=== PATIENT | male | born 1985 | race American Indian/Alaskan Native ===

== ENCOUNTER 2020-12-11 07:43 | Emergency (ER) | payer BC ==
[2020-12-11 08:26] VITALS: BP 155/81
--- NOTE | 2020-12-11 09:11 | XRay Report ---
RIGHT ANKLE 2 VIEWS INDICATION / CLINICAL INFORMATION: injury, pain COMPARISON: None available. FINDINGS: BONES / JOINT(S): No acute fracture or subluxation. There is a small osteophyte arising from the jesica cular bone. SOFT TISSUES: There is soft tissue swelling over the lateral malleolus. ADDITIONAL FINDINGS: None. Signer Name: Jesus Mendez MD Signed: 12/11/2020 8:58 AM Workstation Name: [id number]
--- NOTE | 2020-12-11 10:14 | Emergency Department Report ---
ED General Adult HPI - General Chief complaint: Extremity Injury, Lower Stated complaint: RT ANKLE INJURY Source: patient Mode of arrival: Wheelchair Limitations: No Limitations - History of Present Illness Initial comments: 35-year-old -[place] male patient presents with complaints of right ankle pain starting last night. Patient states he twisted his ankle while play ing around with his children. He states the pain only occurs when he bears weight and rates it as a 6/10 in severity. Tylenol did not improve pain per patient. He denies any numbness/tingling/weakness in his ankle/foot, color changes, or difficulty with movement. -: Sudden Severity scale (0 -10): 7 - Related Data Previous Rx's Medication Instructions Recorded Last Taken Type Naproxen [Naprosyn] 500 mg PO BID PRN #20 tablet 12/11/20 Unknown Rx Allergies Allergy/AdvReac Type Severity Reaction Status Date / Time No Known Allergies Allergy Unverified 12/11/20 08:25 ED Review of Systems ROS: Stated complaint: RT ANKLE INJURY Other details as noted in HPI Musculoskeletal: joint swelling, arthralgia Skin: denies: change in color Neurological: abnormal gait. denies: numbness, paresthesias ED Past Medical Hx - Past Medical History Previous Medical History?: No - Surgical History Past Surgical History?: No - Medications Home Medications: Home Medications Medication Instructions Recorded Confirmed Last Taken Type Naproxen [Naprosyn] 500 mg PO BID PRN #20 tablet 12/11/20 Unknown Rx ED Physical Exam - General Limitations: No Limitations General appearance: alert, in no apparent distress - Head Head exam: Present: atraumatic, normocephalic - Eye Eye exam: Present: normal appearance - Respiratory Respiratory exam: Absent: respiratory distress - Cardiovascular Cardiovascular Exam: Present: regular rate - Expanded Lower Extremity Exam Right Ankle exam: Present: full ROM, tenderness, swelling (Mild lateral). Absent: ecchymosis, deformity, crepidus, dislocation, erythema Neuro vascular tendon exam: Present: no vascular compromise. Absent: sensory deficit Gait: Positive: antalgic - Neurological Exam Neurological exam: Present: alert, oriented X3 - Psychiatric Psychiatric exam: Present: normal affect, normal mood ED Course Vital Signs 12/11/20 08:25 Temperature 98 F Pulse Rate 65 Respiratory 16 Rate Blood Pressure 155/81 [Right] O2 Sat by Pulse 98 Oximetry ED Medical Decision Making - Radiology Data Radiology results: report reviewed RIGHT ANKLE 2 VIEWS INDICATION / CLINICAL INFORMATION: injury, pain COMPARISON: None available. FINDINGS: BONES / JOINT(S): No acute fracture or subluxation. There is a small osteophyte arising from the navicular bone. SOFT TISSUES: There is soft tissue swelling over the lateral malleolus. ADDITIONAL FINDINGS: None. - Medical Decision Making 35-year-old -[place] male patient presents with complaints of right ankle pain starting last night. Patient states he twisted his ankle while playing around with his children. He states the pain only occurs when he bears weight and rates it as a 6/10 in severity. Tylenol did not improve pain per patient. He denies any numbness/tingling/weakness in his ankle/foot, color changes, or difficulty with movement. X-ray negative for any acute bony abnormalities, but shows soft tissue swelling. Will treat for ankle sprain with rice method and crutches. Recommend follow- up with PCP. His vitals are within normal limits, he is well-appearing, he is stable for discharge home. Strict return precautions were discussed in detail patient verbalizes understanding. Patient to also have his blood pressure rechecked with his primary care provider in 2 days Critical care attestation.: If time is entered above; I have spent that time in minutes in the direct care of this critically ill patient, excluding procedure time. ED Disposition Clinical Impression: Elevated blood pressure reading in office without diagnosis of hypertension Right ankle injury Qualifiers: Encounter type: initial encounter Qualified Code(s): S99.911A - Unspecified injury of right ankle, initial encounter Disposition: - TO HOME OR SELFCARE Is pt being admited?: No Condition: Stable Instructions: Ankle Sprain, Hypertension, Adult Prescriptions: Naproxen [Naprosyn] 500 mg PO BID PRN #20 tablet PRN Reason: pain Referrals: [facility] [Provider Group] - 3-5 Days
== END 2020-12-11 10:46 | disposition home or self-care (01) ==
LOC: ED 07:43
DX: S99.911A Unspecified injury of right ankle, initial encounter (principal); R03.0 Elevated blood-pressure reading, without diagnosis of hypertension; Z79.899 Other long term (current) drug therapy; X50.1XXA Overexertion from prolonged static or awkward postures, initial encounter; Y93.89 Activity, other specified; Y92.89 Other specified places as the place of occurrence of the external cause; Y99.8 Other external cause status